=== PATIENT | female | born 1960 ===

== ENCOUNTER → 2019-08-27 | Outpatient (CLI) | payer OTHER ==
[2019-08-27 14:17] VITALS: BP 169/86; PULSE 64; RESP 18
--- NOTE | 2019-08-28 11:18 | P.PAINCN ---
History of Present Illness - Reason for Consult Consult date: 08/27/19 - History of Present Illness This is a 58-year-old patient referred by Dr. Coon, primary care physician with a chief complaint of chronic pain in left low back radiating to left posterior thigh, calves up to toes as well as left inner thigh. This pain has been present for about 25 years, she denies any inciting events. She does endorse subjective weakness in left lower extremity. Leg pain is rated a 60% of pain complaint, back pain is rated as 40% of pain complaint. She has done physical therapy in the past, last done 2 years ago. She has also had interventional pain procedures, possibly epidural steroid injections done 19 years ago, she doesn't think these helped. In terms of medication, she has been on [place], which was weaned off, as well as gabapentin 900mg 3 times a day with good benefit. She however does not have any remaining gabapentin refills. Patient denies adverse drug effects from medications. Patient also denies new- onset weakness, bowel/bladder incontinence, or any other signs or symptoms of cauda equina syndrome. There are no signs of acute intoxication, and no indications of medication diversion or overuse. She also states that she has been diagnosed with fibromyalgia as well as neuropathy, and complains of bilateral arm pain/heaviness, right worse than left, pain is worse with activity and better with medications. Pain is rated as 4/10. She has undergone trigger point injections with steroid into her neck region, she reports that the steroid caused increase in blood sugar, however she does not recall as to how high her blood sugar went. She reports that she does not check her blood sugar at home, however reports that her last HbA1c was 6. Patient has not had surgery. Patient has had injections previously. Patient has had physical therapy recently. In addition to above, 13-point review of systems is also negative for chest pain, shortness of breath, changes in vision, changes in hearing, new onset weakness, abdominal pain, diarrhea, extreme fatigue, malaise, fever, skin changes, homicidal or suicidal ideation, or bowel or bladder incontinence. Physical exam: Vital Signs: Reviewed in EMR GENERAL: Well appearing, in no acute distress PSYCH: Mood and affect is appropriate. Awake, alert, and oriented SKIN: Skin color, texture, turgor normal, no rashes or lesions HEENT: Normocephalic, atraumatic. EOM intact CV: No pedal edema RESP: Respirations are unlabored, no audible wheezing GI: Abdomen non-distended MUSCULOSKELETAL: Bilateral upper and lower extremity strength is normal and symmetric. No atrophy or tone abnormalities are noted. Lumbar spine: Straight leg raising in the sitting position is positive on the left side for radicular pain. Tenderness to palpation over the lumbar spine and paraspinous muscles, worse on the left. Positive for pain with facet loading and back extension/rotation. Buttocks: No pain to palpation over the PSIS, Lindsay test is mildly positive on the left Extremities: Peripheral joint ROM is full and pain free without obvious instability or laxity in all four extremities. No edema or skin discolorations noted. Gait: Gait is normal NEUR: Bilateral upper and lower extremity coordination and muscle stretch reflexes are physiologic and symmetric. Negative clonus. No loss of sensation is noted. Cranial nerves are grossly intact. Imaging: MRI lumbar spine done at [facility] on 12/29/2018 shows mild narrowing of central canal and mild bilateral neuroforaminal narrowing at L4-5. Moderate left neuroforaminal narrowing secondary to disc bulge and facet hypertrophy at L5-S1. Assessment: 1. Lumbar radiculopathy 2. Lumbar degenerative disc disease 3. Lumbar spondylosis without myelopathy Plan: 1. Explanation: Diagnoses, prognoses, and multiple treatment options including but not limited to physical therapy, interventional therapies, medication management and surgery were discussed with the patient and all questions were answered to the patient's satisfaction. 2. Investigations: MRI lumbar spine reviewed 3. Counseling: The patient was counseled for 3 minutes on SMOKING CESSATION, BODY MASS INDEX, EXERCISE. Specifically, the patient was instructed regarding the importance of smoking cessation, weight control, and exercise in the context of both chronic pain and overall health. 4. Procedures: We'll schedule left-sided L5-S1 transforaminal epidural steroid injection. Since patient has had increase in blood sugar with prior steroid injections, she was advised to obtain a glucometer prior to scheduling this procedure. 5. Consultations: None, in the future patient's will likely benefit from repeat physical therapy 6. Medications: Would recommend to primary care physician restarting gabapentin and uptitrating to prior dose of 900 mg 3 times a day as patient has had significant benefit from this in the past. 7. Disposition: For above-mentioned procedure Past Medical History Past Medical History: Diabetes Mellitus, Hyperlipidemia, Hypertension, Musculoskeletal Disorder, Osteoarthritis (OA) Additional Past Medical History / Comment(s): RLS History of Any Multi-Drug Resistant Organisms: MRSA Year Discovered:: 2009 MDRO Source:: ankle Past Surgical History: Appendectomy, Cholecystectomy, Orthopedic Surgery Additional Past Surgical History / Comment(s): CTS right hand Past Anesthesia/Blood Transfusion Reactions: No Reported Reaction Smoking Status: Current every day smoker Medications and Allergies Home Medications Medication Instructions Recorded Confirmed Type Atorvastatin [Lipitor] 10 mg PO HS 08/24/19 08/27/19 History Cetirizine HCl [Zyrtec] 10 mg PO DAILY 08/24/19 08/27/19 History DULoxetine HCL [Cymbalta] 60 mg PO DAILY 08/24/19 08/27/19 History Lisinopril [Zestril] 10 mg PO DAILY 08/24/19 08/27/19 History Meloxicam [Mobic] 7.5 mg PO DAILY 08/24/19 08/27/19 History rOPINIRole HCL [Requip] 0.5 mg PO HS 08/24/19 08/27/19 History sitaGLIPtin PHOS/metFORMIN HCL 1 each PO DAILY 08/24/19 08/27/19 History [Janumet Xr 100-1,000 mg Tablet] tiZANidine [Zanaflex] 4 mg PO TID 08/24/19 08/27/19 History Allergies Allergy/AdvReac Type Severity Reaction Status Date / Time No Known Allergies Allergy Verified 08/27/19 13:59 PQRS Measure Charge Sheet Measure #130: Documentation of Current Meds in Medical Chart: Patient's medications documented in chart Measure #226: Tobacco Use: Screen & Cessation Intervention: Pt screened for tobacco use AND intervention given Measure #111: Pneumonia Vaccination: Pneumococcal vaccine administered or previously received Measure #47: Advance Care Plan: Advance care planning discussed & documented, pt chose/unable to give Measure #412: Opioid Treatment Agreement: No documentation of signed opioid treatment agreement Measure #408: Opioid Therapy Follow-up Evaluation: Patient had NO f/u eval minimum every 3 months during opioid therapy Measure #317: Preventitive Care & Scrn High Bld Press & F/U: Pre-hypertensive or hypertensive BP documented, pt will f/u with PCP Measure #128: Body Mass Index (BMI) Screening & Follow-up: BMI documented ABOVE normal parameters - f/u documented Measure #131: Pain Assessment & Follow-up: Pain positive & plan documented, Follow-up scheduled Measure #431: Unhealthy Alcohol Use Preventative Care & Scrn: Patient not identified as an unhealthy alcohol user PQRS Narrative: Smoking Status Current every day smoker Pain Intensity [Lower Back] 5 Scale Used Numeric (1 - 10) Hx Alcohol Use (MH) No Home Medications: Ambulatory Orders Atorvastatin [Lipitor] 10 mg PO HS 08/24/19 Cetirizine HCl [Zyrtec] 10 mg PO DAILY 08/24/19 DULoxetine HCL [Cymbalta] 60 mg PO DAILY 08/24/19 Lisinopril [Zestril] 10 mg PO DAILY 08/24/19 Meloxicam [Mobic] 7.5 mg PO DAILY 08/24/19 rOPINIRole HCL [Requip] 0.5 mg PO HS 08/24/19 sitaGLIPtin PHOS/metFORMIN HCL [Janumet Xr 100-1,000 mg Tablet] 1 each PO DAILY 08/24/19 tiZANidine [Zanaflex] 4 mg PO TID 08/24/19
== END | disposition home or self-care (01) ==
LOC: PNWHC3 13:23
PROVIDERS: ATTEND Anesthesiology
DX: G89.29 Other chronic pain (principal); M51.16 Intervertebral disc disorders with radiculopathy, lumbar region; M47.26 Other spondylosis with radiculopathy, lumbar region; F17.200 Nicotine dependence, unspecified, uncomplicated; Z79.84 Long term (current) use of oral hypoglycemic drugs; Z79.1 Long term (current) use of non-steroidal anti-inflammatories (NSAID); Z79.899 Other long term (current) drug therapy
CPT/HCPCS: 99201